=== PATIENT | male | born 1975 ===

== ENCOUNTER 2021-03-12 12:12 | Outpatient (CLI) | payer OTHER ==
[2021-03-12] MEDS ORDERED: BUFFERED LIDOCAINE 10 ML SYRINGE ONE (12:45)
[2021-03-12] MEDS ORDERED: GADOBUTROL 7.5 MMOL/7.5 ML VIAL ONE (12:45)
[2021-03-12] MEDS: BUFFERED LIDOCAINE 10 ML SYRINGE IU ONE (13:41)
[2021-03-12] MEDS: iohexoL-240 20 ML VIAL IVP ONE (13:42)
[2021-03-12] MEDS: GADOBUTROL 7.5 MMOL/7.5 ML VIAL IVP ONE (13:44)
--- NOTE | 2021-03-12 14:34 | XRAY Report ---
PROCEDURE: Arthrogram Needle Placement INDICATIONS: LEFT SHOULDER ARTHROGRAM TECHNIQUE: After obtaining informed consent the anterior left shoulder region was prepared and draped in sterile fashion and anesthetized with 1% lidocaine. Utilizing sequential fluoroscopic guidance a 22-gauge spinal needle was advanced into the shoulder joint space, positioning was confirmed by use o f a small amount of iodinated nonionic contrast and thereafter a dilute gadolinium/saline solution wa s instilled for subsequent MR arthrography. COMPARISON: None. FINDINGS: Successful intra-articular injection of a gadolinium/saline solution for MR arthrography. IMPRESSION: Successful injection for MR arthrography. Reviewed by: Andrew Ashraf MD on 03/12/2021 2:32 PM PDT Approved by: Andrew Ashraf MD on 03/12/2021 2:32 PM PDT Station ID: [id number]
--- NOTE | 2021-03-12 15:03 | MRI Report ---
PROCEDURE: Arthrogram Shoulder LT INDICATIONS: LEFT SHOULDER PAIN CONTRAST: 12 mL of diluted intra-articular gadolinium contrast TECHNIQUE: After the administration of 12 mL of dilute intra-articular Gadolinium contrast, oblique coronal T1 a nd T2 spin echo with fat saturation, oblique sagittal T1 spin echo with and without fat saturation, o blique sagittal T2 fast spin echo with fat saturation, axial T1 spin echo with fat saturation through the shoulder. COMPARISON: None. FINDINGS: Image quality: Excellent. Rotator cuff: Tendinosis and low-grade articular and bursal surface partial-thickness tear involving distal supraspinatus at its insertion on humeral head is seen extending to muscular tendinous junctio n. Distal infraspinatus tendon is intact. Distal subscapularis tendon is intact. No full-thickness ro tator cuff tendon rupture. No rotator cuff muscle atrophy on sagittal images. Bones and bursae: No bone marrow contusions or fractures. Mild acromioclavicular joint osteoarthriti c changes are seen with small inferior osteophyte formation depressing on musculotendinous junction o f supraspinatus.. The acromion demonstrates conventional anatomy, without an os acromiale. Capsule and soft tissues: The labrum and glenohumeral ligaments appear intact. The long head of the biceps tendon demonstrates normal location and morphology. The rotator interval appears normal, wit hout fibrosis. The coracohumeral ligament is of normal thickness. No intra-articular bodies. IMPRESSION: 1. Tendinosis and low-grade articular and bursal surface partial-thickness tear involving distal supr aspinatus extending to muscular tendinous junction. No full-thickness rotator cuff tendon rupture. 2. Very mild acromioclavicular joint osteoarthritis as above. 3. No evidence of focal labral tear. Reviewed by: Naeem Orozco MD on 03/12/2021 3:02 PM PDT Approved by: Naeem Orozco MD on 03/12/2021 3:02 PM PDT Station ID: [id number]
== END 2021-03-12 12:13 | disposition home or self-care (01) ==
LOC: DI 12:12 → EDSEX 12:12 → DI 12:13
PROVIDERS: ATTEND Family Medicine
DX: M25.512 Pain in left shoulder (principal); M19.012 Primary osteoarthritis, left shoulder; M75.82 Other shoulder lesions, left shoulder; M75.102 Unspecified rotator cuff tear or rupture of left shoulder, not specified as traumatic
CPT/HCPCS: 23350; 73222; 77002; A9585; Q9966